=== PATIENT | male | born 1970 | race Caucasian/White ===

== ENCOUNTER 2020-05-21 21:59 | Emergency (ER) | payer OTHER ==
[2020-05-21] MEDS ORDERED: Diphtheria,Pertussis(Acell),Tetanus Vaccine 0.5 ML SDV IM ONE (22:14)
--- NOTE | 2020-05-21 22:16 | EDM.PDOC ---
ED HPI GENERAL MEDICAL PROBLEM - General Chief Complaint: Skin Complaint Stated Complaint: FISH HOOK MIDDLE LT FINGER Time Seen by Provider: 05/21/20 22:09 Source of Information: Reports: Patient, RN History Limitations: Reports: No Limitations - History of Present Illness INITIAL COMMENTS - FREE TEXT/NARRATIVE: Pt here private vehicle with fish hook in finger. Onset: Today Onset Date: 05/21/20 Onset Time: 22:00 Duration: Hour(s): Location: Reports: Upper Extremity, Left (Left middle finger ) Quality: Reports: Other (fish hook in finger ) Improves with: Reports: None, Immobilization Worsens with: Reports: Movement Context: Reports: Trauma (fish hook ), Other Left Finger-Middle Pain Score (Numeric/FACES): 6 - Related Data Allergies Allergy/AdvReac Type Severity Reaction Status Date / Time No Known Allergies Allergy Verified 05/21/20 22:29 Home Meds: Home Meds NK [No Known Home Meds] 05/21/20 [History] ED ROS GENERAL - Review of Systems Review Of Systems: See Below Constitutional: Reports: No Symptoms HEENT: Reports: No Symptoms Respiratory: Reports: No Symptoms Cardiovascular: Reports: No Symptoms Endocrine: Reports: No Symptoms GI/Abdominal: Reports: No Symptoms : Reports: No Symptoms Musculoskeletal: Reports: No Symptoms Skin: Reports: Other (fish hook to left index finger ) Neurological: Reports: No Symptoms Psychiatric: Reports: No Symptoms Hematologic/Lymphatic: Reports: No Symptoms Immunologic: Reports: No Symptoms ED EXAM, SKIN/RASH Exam: See Below Exam Limited By: No Limitations General Appearance: Alert, WD/WN, No Apparent Distress, Anxious Ears: Normal External Exam Nose: Normal Inspection Throat/Mouth: Normal Inspection Head: Normocephalic Neck: Normal Inspection Respiratory/Chest: No Respiratory Distress, No Accessory Muscle Use (Male) Exam: Deferred Rectal (Males) Exam: Deferred Back Exam: Normal Inspection Extremities: Normal Inspection Neurological: Alert, Oriented, CN II-XII Intact, Normal Cognition, Normal Gait, Normal Reflexes, No Motor/Sensory Deficits Psychiatric: Normal Affect, Normal Mood Skin: Warm, Dry, Normal Color, No Rash Course - Vital Signs Last Recorded V/S: Last Vital Signs Temp 36.5 C 05/21/20 22:14 Pulse 67 05/21/20 22:14 Resp 16 05/21/20 22:14 BP 136/88 05/21/20 22:14 Pulse Ox 96 05/21/20 22:14 - Orders/Labs/Meds Orders: Active Orders 24 hr Category Date Time Status Vaccines to be Administered [RC] PER UNIT ROUTINE Care 05/21/20 22:14 Active Bacitracin [Bacitracin Oint] Med 05/22/20 09:00 Active 1 gm TOP TID Medication Orders Bacitracin (Bacitracin Oint) 1 gm TOP TID ABHISHEK Last Admin: 05/21/20 22:30 Dose: 1 dose Documented by: VIKY Valentines: Medications Generic Name Dose Route Start Last Admin Trade Name Freq PRN Reason Stop Dose Admin Bacitracin 1 gm 05/22/20 09:00 05/21/20 22:30 Bacitracin Oint TOP 1 dose TID ABHISHEK Administration Discontinued Medications Generic Name Dose Route Start Last Admin Trade Name Freq PRN Reason Stop Dose Admin Bacitracin Confirm 05/21/20 22:28 05/21/20 22:30 Bacitracin Oint 1 Gm Administered 05/21/20 22:29 Not Given Dose 1 dose .ROUTE .STK-MED ONE Diphtheria/Tetanus/Acell Pertussis 0.5 ml 05/21/20 22:14 Adacel IM 05/21/20 22:15 .ONCE ONE Lidocaine HCl 5 ml 05/21/20 22:09 05/21/20 22:16 Xylocaine-Mpf 1% INJECT 05/21/20 22:10 5 ml ONETIME ONE Administration Departure - Departure Time of Disposition: 22:28 Disposition: Home, Self-Care 01 Condition: Good Clinical Impression: Fish hook injury of index finger Qualifiers: Encounter type: initial encounter Laterality: left Qualified Code(s): S69.92XA - Unspecified injury of left wrist, hand and finger(s), initial encounter - Discharge Information *PRESCRIPTION DRUG MONITORING PROGRAM REVIEWED*: Not Applicable *COPY OF PRESCRIPTION DRUG MONITORING REPORT IN PATIENT MARY: Not Applicable Referrals: PCP,None [Primary Care Provider] - Forms: ED Department Discharge Care Plan Goals: Fish hook: Monitor for signs of infection. Use Bacitracin for 3 days. Keep clean and dry. Seek medical care at the first signs of infection. Sepsis Event Note (ED) - Focused Exam Vital Signs: Vital Signs Temp Pulse Resp BP Pulse Ox 05/21/20 22:14 36.5 C 67 16 136/88 96 - Problem List & Annotations (1) Fish hook injury of index finger SNOMED Code(s): 33802202 Code(s): S69.90XA - UNSP INJURY OF UNSP WRIST, HAND AND FINGER(S), INIT ENCNTR Status: Acute Priority: High Current Visit: Yes Qualifiers: Encounter type: initial encounter Laterality: left Qualified Code(s): S69.92XA - Unspecified injury of left wrist, hand and finger(s), initial encounter - Problem List Review Problem List Initiated/Reviewed/Updated: Yes - My Orders Last 24 Hours: My Active Orders 05/21/20 22:14 Vaccines to be Administered [RC] PER UNIT ROUTINE 05/22/20 09:00 Bacitracin [Bacitracin Oint] 1 gm TOP TID - Assessment/Plan Last 24 Hours: My Active Orders 05/21/20 22:14 Vaccines to be Administered [RC] PER UNIT ROUTINE 05/22/20 09:00 Bacitracin [Bacitracin Oint] 1 gm TOP TID Plan: Fish hook: Monitor for signs of infection. Use Bacitracin for 3 days. Keep clean and dry. Seek medical care at the first signs of infection such as redness, discharge, or pain.
[2020-05-21] MEDS ORDERED: Bacitracin Oint 1 GM U/D Packet ONE (22:28)
[2020-05-22] MEDS ORDERED: Bacitracin Oint 28.35 GM Tube TOP SCH (09:00)
== END 2020-05-21 22:39 | disposition home or self-care (01) ==
LOC: JP.ED 21:59
DX: S60.451A Superficial foreign body of left index finger, initial encounter (principal); Z23 Encounter for immunization; W45.8XXA Other foreign body or object entering through skin, initial encounter
CPT/HCPCS: 90471; 90715; 99283; J2001; 64450